=== PATIENT | female | born 1985 | race Caucasian/White ===

== ENCOUNTER 2017-01-11 11:12 | Emergency (ER) | payer OTHER ==
[~2017-01-11] VITALS: Ht 170.2 cm; Wt 54.5 kg
[2017-01-11 11:29] VITALS: BP 106/59
[2017-01-11] MEDS ORDERED: IV NORMAL SALINE 1,000ML 1,000 ML IV SCH (11:32)
[2017-01-11 11:59] LABS: BASO % 0 % (0-3); EOS # 0.1 x10^3/uL (0.0-0.7); EOS % 1 % (0-3); HEMATOCRIT 39.3 % (36.0-47.0); HEMOGLOBIN 13.5 g/dL (12.0-15.5); LYMPH # 2.1 x10^3/uL (1.0-4.8); LYMPH % 33 % (24-48); MEAN CORPUSCULAR HEMOGLOBIN 32 pg (25-35); MEAN CORPUSCULAR HGB CONC 34 g/dL (31-37); MEAN CORPUSCULAR VOLUME 93 fL (79-100); MONO # 0.5 x10^3/uL (0.0-1.1); MONO % 8 % (0-9); NEUT # 3.6 x10^3uL (1.8-7.7); NEUT % 57 % (31-73); PLATELET COUNT 200 x10^3/uL (140-400); RED BLOOD COUNT 4.24 x10^6/uL (3.50-5.40); RED CELL DISTRIBUTION WIDTH 12.8 % (11.5-14.5); WHITE BLOOD COUNT 6.3 x10^3/uL (4.0-11.0)
[2017-01-11] MEDS ORDERED: ACETAMINOPHEN 325 MG TABLET PO ONE (12:00)
--- NOTE | 2017-01-11 12:00 | PHYS DOC ---
Past History Past Medical History: No Pertinent History Past Surgical History: No Surgical History Alcohol Use: Rarely Drug Use: None Adult General Chief Complaint Chief Complaint: MENSTRUAL PAIN/CRAMPS HPI HPI Patient is a 31 year old female who presents with complaint of pelvic cramping. Patient is approximately 5 weeks . Patient states that she has had cramping over the past 2-3 days. The patient has been driving with her and child from [place] in [place] to [place] in [place] where the patient's has just been re-stationed. Patient states on January 08 she had an ultrasound which showed a gestational sac within the uterus but no further findings of intrauterine . Patient states that her serum hCG was recorded on the paperwork that she has provided here in the emergency department from that visit. The patient denies any fevers or abdominal pain currently. Patient has been having mild nausea which she attributes to first trimester . Patient states that she has been drinking what she feels is plenty of fluids over the past 2 days. Patient denies any chest pain, shortness of breath, or leg swelling. Patient does not have an OB doctor as she just moved to this area yesterday. Review of Systems Review of Systems Constitutional: Denies fever or chills [] Eyes: Denies change in visual acuity, redness, or eye pain [] HENT: Denies nasal congestion or sore throat [] Respiratory: Denies cough or shortness of breath [] Cardiovascular: Denies substernal chest pain or edema [] GI: Denies abdominal pain, nausea, vomiting, bloody stools or diarrhea [] : Pelvic cramping, denies hematuria, dysuria, vaginal bleeding or abnormal discharge [] Musculoskeletal: Denies back pain or joint pain [] Integument: Denies rash or skin lesions [] Neurologic: Denies headache, focal weakness or sensory changes [] Current Medications Current Medications Current Medications Medications (Trade) Dose Ordered Sig/Claudia Start Time Stop Time Status Last Admin Dose Admin Acetaminophen (Tylenol) 650 mg 1X ONCE 01/11/17 12:00 01/11/17 12:01 Sodium Chloride 1,000 ml @ 1,000 mls/hr Q1H 01/11/17 11:32 01/11/17 12:31 Allergies Allergies Allergies Coded Allergies Type Severity Reaction Last Updated Verified No Known Drug Allergies 01/11/17 No Physical Exam Physical Exam Constitutional: Well developed, well nourished, no acute distress, non-toxic appearance. [] HENT: Normocephalic, atraumatic, bilateral external ears normal, oropharynx moist, no oral exudates, nose normal. [] Eyes: PERRLA, EOMI, conjunctiva normal, no discharge. [] Neck: Normal range of motion, no tenderness, supple, no stridor. [] Cardiovascular:Heart rate regular rhythm, no murmur [] Lungs & Thorax: Bilateral breath sounds clear to auscultation [] Abdomen: Bowel sounds normal, soft, no tenderness, no masses, no pulsatile masses. Pelvic: Normal external exam, no evidence of blood or abnormal discharge in vaginal canal, cervical os closed, no cervical motion tenderness, no midline or bilateral adnexal tenderness on bimanual exam [] Skin: Warm, dry, no erythema, no rash. [] Back: No tenderness, no CVA tenderness. [] Extremities: No tenderness, no cyanosis, no clubbing, ROM intact, no edema. [] Neurologic: Alert and oriented X 3, normal motor function, normal sensory function, no focal deficits noted. [] Psychologic: Affect normal, judgement normal, mood normal. [] Current Patient Data Vital Signs Vital Signs Date Time Temp Pulse Resp B/P (MAP) Pulse Ox O2 Delivery O2 Flow Rate FiO2 01/11/17 11:29 98.4 75 20 98 Room Air Lab Results Laboratory Tests Test 01/11/17 11:44 01/11/17 12:55 White Blood Count 6.3 x10^3/uL Red Blood Count 4.24 x10^6/uL Hemoglobin 13.5 g/dL Hematocrit 39.3 % Mean Corpuscular Volume 93 fL Mean Corpuscular Hemoglobin 32 pg Mean Corpuscular Hemoglobin Concent 34 g/dL Red Cell Distribution Width 12.8 % Platelet Count 200 x10^3/uL Neutrophils (%) (Auto) 57 % Lymphocytes (%) (Auto) 33 % Monocytes (%) (Auto) 8 % Eosinophils (%) (Auto) 1 % Basophils (%) (Auto) 0 % Neutrophils # (Auto) 3.6 x10^3uL Lymphocytes # (Auto) 2.1 x10^3/uL Monocytes # (Auto) 0.5 x10^3/uL Eosinophils # (Auto) 0.1 x10^3/uL Basophils # (Auto) 0.0 x10^3/uL Maternal Serum HCG Beta Subunit 39360 mIU/mL Sodium Level 138 mmol/L Potassium Level 4.0 mmol/L Chloride Level 105 mmol/L Carbon Dioxide Level 27 mmol/L Anion Gap 6 Blood Urea Nitrogen 11 mg/dL Creatinine 0.7 mg/dL Estimated GFR (Cockcroft-Gault) 98.3 Glucose Level 94 mg/dL Calcium Level 8.7 mg/dL Magnesium Level 1.8 mg/dL Urine Collection Type Unknown Urine Color Yellow Urine Clarity Cloudy Urine pH 7.5 Urine Specific [place] 1.020 Urine Protein Neg Urine Glucose (UA) Neg mg/dL Urine Ketones (Stick) Neg mg/dL Urine Blood Neg Urine Nitrite Neg Urine Bilirubin Neg Urine Urobilinogen Dipstick 0.2 mg/dL Urine Leukocyte Esterase Neg Urine RBC 0 /HPF Urine WBC 0 /HPF Urine Squamous Epithelial Cells Occ /LPF Urine Amorphous Sediment Present /HPF Urine Bacteria 0 /HPF Current Medications Medications (Trade) Dose Ordered Sig/Claudia Route PRN Reason Start Time Stop Time Status Last Admin Dose Admin Sodium Chloride 1,000 ml @ 1,000 mls/hr Q1H IV 01/11/17 11:32 01/11/17 12:31 DC 01/11/17 12:10 Acetaminophen (Tylenol) 650 mg 1X ONCE PO 01/11/17 12:00 01/11/17 12:01 DC 01/11/17 12:10 EKG EKG Not performed [] Radiology/Procedures Radiology/Procedures Not performed [] Course & Med Decision Making Course & Med Decision Making Pertinent Labs and Imaging studies reviewed. (See chart for details) The patient was given IV fluids and Tylenol in the emergency department. The patient's hCG level is trending upward at a normal level. I spoke with Dr. Vasquez of [facility] and spoke with her regarding patient's previous use of progesterone. She stated that the patient could be started on progesterone 100 mg daily and recommended that she continue until follow-up at her next appointment. The patient was referred to Dr. Vasquez and advised to schedule an appointment in the next 1-2 weeks. Advised return emergency department for any worsening symptoms. Patient voiced understanding and in agreement with treatment plan. Dragon Disclaimer Dragon Disclaimer This chart was dictated in whole or in part using Voice Recognition software in a busy, high-work load, and often noisy Emergency Department environment. It may contain unintended and wholly unrecognized errors or omissions. Departure Departure: Impression: Primary Impression: Pelvic pain during Disposition: HOME, SELF-CARE Condition: IMPROVED Referrals: PCP,JAMIN (PCP) Patient Instructions: Abdominal Pain During Additional Instructions: Follow-up with Dr. Vasquez of [facility] in 1-2 weeks. Her office phone number is . Continue on your progesterone prescription until you have been reevaluated by [facility]. Return to the emergency department for any worsening symptoms. Scripts Progesterone,Micronized (PROMETRIUM) 100 Mg Capsule 1 CAP PO DAILY, #30 CAP 1 Refill Prov: CIELO CHAPPELL MD 01/11/17 CIELO CHAPPELL MD Jan 11, 2017 12:00
[2017-01-11 12:06] LABS: CALCIUM 8.7 mg/dL (8.5-10.1); CREATININE 0.7 mg/dL (0.6-1.0); GFR 98.3; MAGNESIUM 1.8 mg/dL (1.8-2.4)
[2017-01-11] MEDS ORDERED: PROG100C15 PO (13:14)
[2017-01-11 13:16] LABS: AMORPHOUS SEDIMENT,UR PRESENT /HPF; BACTERIA,URINE 0 /HPF (0-FEW); BILIRUBIN,URINE NEG (NEG); CLARITY,URINE CLOUDY; COLOR,URINE YELLOW; GLUCOSE,URINE NEG (NEG); NITRITE,URINE NEG (NEG); RBC,URINE 0 /HPF (0-2); SQUAMOUS EPITHELIAL CELL,UR OCC /LPF; UROBILINOGEN,URINE 0.2 mg/dL (0.2 mg/dL); WBC,URINE 0 /HPF (0-4)
[2017-01-12 19:12] LABS: CHLAMYDIA PROBE Negative (Negative)
== END 2017-01-11 13:35 | disposition home or self-care (01) ==
LOC: ER 11:12
DX: O26.891 Other specified pregnancy related conditions, first trimester (principal); R10.2 Pelvic and perineal pain; R11.0 Nausea
CPT/HCPCS: 36415; 80048; 81001; 83735; 84702; 85027; 87491; 87591; 96360; 99284; Q0111; J7030